=== PATIENT | female | born 1980 | race Caucasian/White ===

== ENCOUNTER → 2020-04-17 | Outpatient (CLI) | payer OTHER ==
[~2020-04-17] MED LIST: FLEXERIL 10 MG10 MG PO; PREDNISONE 50 M50 MG PO
== END ==
LOC: EMI 08:15
DX: S83.411A Sprain of medial collateral ligament of right knee, initial encounter (principal); R93.6 Abnormal findings on diagnostic imaging of limbs; R60.0 Localized edema; X58.XXXA Exposure to other specified factors, initial encounter
CPT/HCPCS: 73721